=== PATIENT | male | born 1935 | race African-American/Black ===

== ENCOUNTER 2022-07-31 01:46 | Emergency (ER) | payer MEDICAID, MEDICARE, OTHER ==
[~2022-07-31] VITALS: Ht 182.9 cm; Wt 73.0 kg
[2022-07-31 01:55] VITALS: BP 151/60
[2022-07-31] MEDS ORDERED: ACETAMINOPHEN 650MG/20.3ML UDC PO ONE (07:30)
== END 2022-07-31 08:30 | disposition home or self-care (01) ==
LOC: ER 01:48
DX: S39.012A Strain of muscle, fascia and tendon of lower back, initial encounter (principal); I10 Essential (primary) hypertension; Z86.73 Personal history of transient ischemic attack (TIA), and cerebral infarction without residual deficits; W01.0XXA Fall on same level from slipping, tripping and stumbling without subsequent striking against object, initial encounter; Y93.89 Activity, other specified; Y92.018 Other place in single-family (private) house as the place of occurrence of the external cause
CPT/HCPCS: 72131; 72192; 73700; 99284

== ENCOUNTER 2024-08-30 13:34 | Emergency (ER) | payer MEDICARE, OTHER ==
[~2024-08-30] VITALS: Ht 172.7 cm; Wt 78.0 kg
[2024-08-30 13:37] VITALS: O2SAT 99
[2024-08-30 14:16] LABS: BASOPHILS % 0.7 % (0.0-2.0); EOSINOPHILS % 3.2 % (0.0-5.0); HEMATOCRIT. 36.4 % (42.0-52.0); HEMOGLOBIN. 12.1 g/dL (14.0-18.0); LYMPHOCYTES % 7.1 % (20.0-50.0); MEAN CORPUSCULAR HEMOGLOBIN 31.4 pg (28.0-32.0); MEAN CORPUSCULAR HGB CONC 33.3 g/dL (31.0-37.0); MEAN CORPUSCULAR VOLUME 94.3 fL (80.0-94.0); MEAN PLATELET VOLUME 7.2 fl (7.4-10.4); MONOCYTES % 6.9 % (2.0-8.0); NEUTROPHILS % 82.1 % (40.0-76.0); PLATELET 358 x1000/uL (130-400); RED BLOOD CELL COUNT 3.86 mill/uL (4.7-6.1); RED CELL DISTRIBUTION WIDTH 13.5 % (11.6-14.6); WHITE BLOOD COUNT 8.4 x1000/uL (4.5-11.0)
[2024-08-30] MEDS: FAMOTIDINE 20MG/2ML VIAL IV STA (14:17)
[2024-08-30 14:22] LABS: CARBON DIOXIDE 27 mEq/L (21-32); CHLORIDE 101 mEq/L (98-107); POTASSIUM 4.2 mEq/L (3.5-5.1); SODIUM 137 mEq/L (136-145)
[2024-08-30 14:23] LABS: CALCIUM 9.8 mg/dL (8.7-10.4)
[2024-08-30 14:28] LABS: CREATININE 1.3 mg/dL (0.6-1.3); GLUCOSE 114 mg/dL (70-105); UREA NITROGEN BLOOD 29 mg/dL (9-23)
[2024-08-30 14:29] LABS: ALANINE AMINOTRANSFERASE < 7 IU/L (10-49); ALBUMIN 4.1 g/dL (3.2-4.8); ASPARTATE AMINOTRANSFERASE 13 IU/L (<34)
[2024-08-30 14:30] LABS: BILIRUBIN TOTAL 0.4 mg/dL (0.1-1.0); PROTEIN TOTAL 7.4 g/dL (6.0-8.3); TROPONIN I HIGH SENSITIVITY 7 ng/L (3.0-53)
[2024-08-30 14:36] LABS: BILIRUBIN DIRECT < 0.1 mg/dL (<=3.0)
[2024-08-30 17:03] LABS: CLARITY URINE CLEAR (CLEAR); COLOR URINE YELLOW (YELLOW); GLUCOSE URINE NEGATIVE (NEGATIVE); KETONES URINE NEGATIVE (NEGATIVE); LEUKOCYTE ESTERASE URINE NEGATIVE (NEGATIVE); NITRITE URINE NEGATIVE (NEGATIVE); OCCULT BLOOD URINE NEGATIVE (NEGATIVE); PH URINE 5.5 (4.5-8.0); PROTEIN URINE TRACE (NEGATIVE); SPECIFIC GRAVITY URINE 1.017 (1.005-1.030); UROBILINOGEN URINE 0.2 E.U./dL (0.2-1.0)
[2024-08-30] MEDS ORDERED: POLY17PO3 MT (17:24)
[2024-08-30] MEDS ORDERED: SENN-215 MT (17:24)
[2024-08-30 17:27] VITALS: BP 130/66; PULSE 81; RESP 18; TEMP 36.8; O2SAT 99
[2024-08-30 17:37] LABS: BACTERIA URINE TRACE; RBC URINE NONE SEEN /hpf (0-2); SQUAMOUS EPITHELIAL CELL URINE RARE /lpf (RARE/1+)
[2024-08-30 17:38] LABS: WBC URINE NONE SEEN /hpf (0-2)
== END 2024-08-30 19:07 | disposition home or self-care (01) ==
LOC: ER 13:54
DX: K56.41 Fecal impaction (principal); I10 Essential (primary) hypertension; F10.90 Alcohol use, unspecified, uncomplicated; Z86.73 Personal history of transient ischemic attack (TIA), and cerebral infarction without residual deficits; Y90.9 Presence of alcohol in blood, level not specified
CPT/HCPCS: 99285; 74174; 96374; 71275; 80076; 80048; 81003; 83880; 83690; 83735; 85025; 85610; 86850; 86900; 86901; 84484; 36415; 93005; J3490

== ENCOUNTER 2024-09-19 15:55 | Inpatient (IN) | payer MEDICARE ==
[~2024-09-19] VITALS: Ht 167.6 cm; Wt 73.5 kg
[~2024-09-19 15:55] MED LIST: AMLO10TA80 PO; ASPI-1497 MT; ATOR20TA MT; BENA40TA91 PO; FINA5TAB11 PO; HYDR12.54 PO; NITR0.4T49 SL; POLY17PO3 MT; SENN-215 MT; TIZA-191 PO
[2024-09-19] MEDS: HYDROCODONE/ACETAMINOPHEN 5/325MG TABLET PO ONE (17:39)
[2024-09-19] MEDS: SODIUM CHLORIDE 0.9% 1,000 ML IV ONE (17:39)
[2024-09-19 17:40] LABS: BASOPHILS % 0.3 % (0.0-2.0); EOSINOPHILS % 1.7 % (0.0-5.0); HEMATOCRIT. 38.9 % (42.0-52.0); HEMOGLOBIN. 13.1 g/dL (14.0-18.0); LYMPHOCYTES % 7.2 % (20.0-50.0); MEAN CORPUSCULAR HEMOGLOBIN 31.3 pg (28.0-32.0); MEAN CORPUSCULAR HGB CONC 33.6 g/dL (31.0-37.0); MEAN CORPUSCULAR VOLUME 93.1 fL (80.0-94.0); MEAN PLATELET VOLUME 8.6 fl (7.4-10.4); MONOCYTES % 4.3 % (2.0-8.0); NEUTROPHILS % 86.5 % (40.0-76.0); PLATELET 336 x1000/uL (130-400); RED BLOOD CELL COUNT 4.18 mill/uL (4.7-6.1); RED CELL DISTRIBUTION WIDTH 14.1 % (11.6-14.6); WHITE BLOOD COUNT 10.4 x1000/uL (4.5-11.0)
[2024-09-19 17:43] LABS: CHLORIDE 98 mEq/L (98-107); POTASSIUM 4.4 mEq/L (3.5-5.1); SODIUM 134 mEq/L (136-145)
[2024-09-19 17:44] LABS: CARBON DIOXIDE 30 mEq/L (21-32)
[2024-09-19 17:45] LABS: CALCIUM 10.6 mg/dL (8.7-10.4)
[2024-09-19 17:49] LABS: GLUCOSE 98 mg/dL (70-105)
[2024-09-19 17:50] LABS: TROPONIN I HIGH SENSITIVITY 9 ng/L (3.0-53); UREA NITROGEN BLOOD 28 mg/dL (9-23)
[2024-09-19 17:53] LABS: PROTHROMBIN TIME 10.8 sec (9.6-11.0)
[2024-09-19 17:57] LABS: CREATININE 1.5 mg/dL (0.6-1.3)
[2024-09-19 19:17] LABS: CLARITY URINE CLEAR (CLEAR); COLOR URINE YELLOW (YELLOW); GLUCOSE URINE NEGATIVE (NEGATIVE); KETONES URINE NEGATIVE (NEGATIVE); LEUKOCYTE ESTERASE URINE NEGATIVE (NEGATIVE); NITRITE URINE NEGATIVE (NEGATIVE); OCCULT BLOOD URINE NEGATIVE (NEGATIVE); PH URINE 6.5 (4.5-8.0); PROTEIN URINE TRACE (NEGATIVE); SPECIFIC GRAVITY URINE 1.013 (1.005-1.030); UROBILINOGEN URINE 0.2 E.U./dL (0.2-1.0)
[2024-09-19 20:02] LABS: BACTERIA URINE NONE SEEN; RBC URINE NONE SEEN /hpf (0-2); SQUAMOUS EPITHELIAL CELL URINE RARE /lpf (RARE/1+); WBC URINE NONE SEEN /hpf (0-2)
[2024-09-19 21:49] LABS: TROPONIN I HIGH SENSITIVITY 9 ng/L (3.0-53)
[2024-09-19 22:00] VITALS: BP 112/67; PULSE 79; RESP 16; TEMP 36.8
[2024-09-19] MEDS ORDERED: IPRATROPIUM/ALBUTEROL 0.5-3(2.5)MG/3ML NEB HHN PRN (22:15)
[2024-09-19] MEDS ORDERED: GUAIFENESIN 200MG/10ML SUGAR FREE UDC PO PRN (22:15)
[2024-09-19] MEDS ORDERED: ACETAMINOPHEN 325MG TABLET PO PRN (22:15)
[2024-09-19] MEDS ORDERED: ONDANSETRON HCL 4MG/2ML INJ IV PRN (22:15)
[2024-09-19] MEDS ORDERED: DOCUSATE SODIUM 100MG CAPSULE PO PRN (22:15)
[2024-09-20] VITALS: BP 105/66; PULSE 83; RESP 16; TEMP 36.5; O2SAT 98
[2024-09-20] MEDS: ACETAMINOPHEN 325MG TABLET PO PRN (01:17)
[2024-09-20 01:26] LABS: CLARITY URINE CLEAR (CLEAR); COLOR URINE YELLOW (YELLOW); GLUCOSE URINE NEGATIVE (NEGATIVE); KETONES URINE NEGATIVE (NEGATIVE); LEUKOCYTE ESTERASE URINE NEGATIVE (NEGATIVE); NITRITE URINE NEGATIVE (NEGATIVE); OCCULT BLOOD URINE NEGATIVE (NEGATIVE); PROTEIN URINE TRACE (NEGATIVE); SPECIFIC GRAVITY URINE 1.014 (1.005-1.030); UROBILINOGEN URINE 0.2 E.U./dL (0.2-1.0)
[2024-09-20 01:43] LABS: *AMPHETAMINES SCREEN URINE NEGATIVE (NEGATIVE); *BARBITURATES SCREEN URINE NEGATIVE (NEGATIVE); *BENZODIAZEPINES SCREEN URINE NEGATIVE (NEGATIVE); *COCAINE SCREEN URINE NEGATIVE (NEGATIVE); CANNABINOID URINE SCREEN NEGATIVE (NEGATIVE); ECSTASY MDMA SCREEN URINE NEGATIVE (NEGATIVE); METHADONE URINE SCREEN NEGATIVE (NEGATIVE); OPIATES URINE SCREEN PRESUMPTIVE POSITIVE (NEGATIVE); PHENCYCLIDINE URINE SCREEN NEGATIVE (NEGATIVE)
[2024-09-20] MEDS: TRAMADOL 50MG TABLET PO NR (03:51)
[2024-09-20 04:00] VITALS: BP 122/68; PULSE 72; RESP 18; TEMP 36.4; O2SAT 98
[2024-09-20 05:20] LABS: BACTERIA URINE NONE SEEN; RBC URINE 0-2 /hpf (0-2); SQUAMOUS EPITHELIAL CELL URINE NONE SEEN /lpf (RARE/1+); WBC URINE 0-2 /hpf (0-2)
[2024-09-20] MEDS: SODIUM CHLORIDE 0.9% 1,000 ML IV SCH (06:51)
[2024-09-20] MEDS: PANTOPRAZOLE 40MG DR TABLET PO SCH (06:51)
[2024-09-20 07:11] LABS: THYROID STIMULATING HORMONE 0.14 uIU/mL (0.55-4.78)
[2024-09-20 07:12] LABS: T4 FREE 1.22 ng/dL (0.89-1.76)
[2024-09-20 08:00] VITALS: BP 112/65; PULSE 66; RESP 18; TEMP 36.2; O2SAT 99
[2024-09-20] MEDS: ASPIRIN 81MG EC TABLET PO SCH (08:49)
[2024-09-20] MEDS: DOCUSATE SODIUM 100MG CAPSULE PO SCH (08:49)
[2024-09-20] MEDS: ATORVASTATIN CALCIUM 20MG TABLET PO SCH (08:49)
[2024-09-20] MEDS: AMLODIPINE 10MG TABLET PO SCH (09:00)
[2024-09-20] MEDS: FINASTERIDE 5MG TABLET PO SCH (09:02)
[2024-09-20] MEDS: LACTULOSE 20G/30ML UDC PO SCH (15:14)
[2024-09-20] MEDS: NA PHOS,M-B/NA PHOS,DI-BA ENEMA 118ML PR NR (15:16)
[2024-09-20 16:00] VITALS: BP 136/68; PULSE 75; RESP 17; TEMP 35.7; O2SAT 97
[2024-09-20 20:00] VITALS: BP 107/57; PULSE 76; RESP 20; TEMP 36.5; O2SAT 100
[2024-09-20] MEDS: TIZANIDINE HCL 2MG TABLET PO SCH (20:51)
[2024-09-21] VITALS: BP 128/62; PULSE 73; RESP 22; TEMP 36.6; O2SAT 99
[2024-09-21 04:00] VITALS: BP 110/53; PULSE 69; RESP 20; TEMP 36.5; O2SAT 99
[2024-09-21 08:00] VITALS: BP 122/53; PULSE 58; RESP 17; TEMP 36.3; O2SAT 99
[2024-09-21 11:03] LABS: BASOPHILS % 0.7 % (0.0-2.0); HEMATOCRIT. 36.2 % (42.0-52.0); HEMOGLOBIN. 11.6 g/dL (14.0-18.0); MEAN CORPUSCULAR HEMOGLOBIN 30.3 pg (28.0-32.0); MEAN CORPUSCULAR HGB CONC 31.9 g/dL (31.0-37.0); MEAN CORPUSCULAR VOLUME 94.9 fL (80.0-94.0); MEAN PLATELET VOLUME 8.5 fl (7.4-10.4); MONOCYTES % 7.1 % (2.0-8.0); NEUTROPHILS % 72.2 % (40.0-76.0); PLATELET 284 x1000/uL (130-400); RED BLOOD CELL COUNT 3.82 mill/uL (4.7-6.1); RED CELL DISTRIBUTION WIDTH 14.1 % (11.6-14.6); WHITE BLOOD COUNT 6.6 x1000/uL (4.5-11.0)
[2024-09-21 11:14] LABS: CHLORIDE 104 mEq/L (98-107); POTASSIUM 3.5 mEq/L (3.5-5.1); SODIUM 138 mEq/L (136-145)
[2024-09-21 11:15] LABS: CALCIUM 9.3 mg/dL (8.7-10.4); CARBON DIOXIDE 27 mEq/L (21-32)
[2024-09-21 11:20] LABS: GLUCOSE 94 mg/dL (70-105); UREA NITROGEN BLOOD 16 mg/dL (9-23)
[2024-09-21 12:00] VITALS: BP 126/60; PULSE 68; RESP 18; TEMP 36.1; O2SAT 99
[2024-09-21 16:00] VITALS: BP 101/58; PULSE 73; RESP 17; TEMP 36.3; O2SAT 99
[2024-09-21 20:00] VITALS: BP 125/62; PULSE 62; RESP 16; TEMP 36.3; O2SAT 99
[2024-09-22] VITALS: BP 132/62; PULSE 83; RESP 18; TEMP 36.7; O2SAT 98
[2024-09-22 04:00] VITALS: BP 139/72; PULSE 70; RESP 18; TEMP 36.7; O2SAT 99
[2024-09-22 08:00] VITALS: BP 142/79; PULSE 71; RESP 19; TEMP 37; O2SAT 96
[2024-09-22 12:00] VITALS: BP 123/62; PULSE 74; RESP 18; TEMP 37; O2SAT 97
[2024-09-22 14:05] VITALS: BP 123/62; PULSE 74; TEMP 98.6; O2SAT 97
== END 2024-09-22 15:17 | disposition home or self-care (01) | DRG 205 ==
LOC: ER 15:55 → EDBEDREQTM 21:25 → EDBEDREQ 21:25 → 5WST 21:45 → 7EST 09-21 22:16
PROVIDERS: ADMIT Internal Medicine; ATTEND Internal Medicine
DX: M94.0 Chondrocostal junction syndrome [Tietze] (principal); N17.0 Acute kidney failure with tubular necrosis; F11.23 Opioid dependence with withdrawal; E87.1 Hypo-osmolality and hyponatremia; I69.351 Hemiplegia and hemiparesis following cerebral infarction affecting right dominant side; I69.354 Hemiplegia and hemiparesis following cerebral infarction affecting left non-dominant side; K29.80 Duodenitis without bleeding; I20.9 Angina pectoris, unspecified; K56.41 Fecal impaction; N20.0 Calculus of kidney; E86.0 Dehydration; E83.52 Hypercalcemia; D63.8 Anemia in other chronic diseases classified elsewhere; N18.9 Chronic kidney disease, unspecified; N40.0 Benign prostatic hyperplasia without lower urinary tract symptoms; N28.1 Cyst of kidney, acquired; E78.5 Hyperlipidemia, unspecified; J44.89 Other specified chronic obstructive pulmonary disease; T40.2X5A Adverse effect of other opioids, initial encounter; I12.9 Hypertensive chronic kidney disease with stage 1 through stage 4 chronic kidney disease, or unspecified chronic kidney disease; Z79.899 Other long term (current) drug therapy; Z79.82 Long term (current) use of aspirin; Y92.89 Other specified places as the place of occurrence of the external cause
CPT/HCPCS: 36415; 74018; 76770; 80048; 80061; 80305; 80320; 81003; 83036; 84439; 84443; 84484; 85025; 85379; 93005; 93970; 99285; J7030; G0480

== ENCOUNTER 2024-11-02 19:00 | Inpatient (IN) | payer MEDICARE, MEDICAID ==
[~2024-11-02] VITALS: Ht 170.2 cm; Wt 72.6 kg
[~2024-11-02 19:00] MED LIST changes: -ASPI-1497 MT; +PROT40 MT; +SUCR1TAB MT
[2024-11-02 20:26] LABS: HEMOGLOBIN. 10.2 g/dL (14.0-18.0); MEAN CORPUSCULAR HEMOGLOBIN 30.1 pg (28.0-32.0); MEAN PLATELET VOLUME 8.1 fl (7.4-10.4); PLATELET 293 x1000/uL (130-400); WHITE BLOOD COUNT 7.5 x1000/uL (4.5-11.0)
[2024-11-02 20:30] LABS: DIFFERENTIAL COMMENT 1
[2024-11-02 20:35] LABS: CHLORIDE 103 mEq/L (98-107); POTASSIUM 3.6 mEq/L (3.5-5.1); SODIUM 138 mEq/L (136-145)
[2024-11-02] MEDS: FAMOTIDINE 20MG/2ML VIAL IV ONE (20:35)
[2024-11-02 20:36] LABS: CALCIUM 8.9 mg/dL (8.7-10.4); CARBON DIOXIDE 32 mEq/L (21-32)
[2024-11-02 20:37] LABS: INR 1.1; PROTHROMBIN TIME 11.4 sec (9.6-11.0)
[2024-11-02 20:41] LABS: CREATININE 0.9 mg/dL (0.6-1.3); GLUCOSE 116 mg/dL (70-105); UREA NITROGEN BLOOD 11 mg/dL (9-23)
[2024-11-02 20:42] LABS: TROPONIN I HIGH SENSITIVITY 30 ng/L (3.0-53)
[2024-11-02 20:43] LABS: ALANINE AMINOTRANSFERASE < 7 IU/L (10-49); ALBUMIN 3.6 g/dL (3.2-4.8); ASPARTATE AMINOTRANSFERASE 14 IU/L (<34); BILIRUBIN DIRECT 0.1 mg/dL (<=3.0); BILIRUBIN TOTAL 0.4 mg/dL (0.1-1.0); PROTEIN TOTAL 6.3 g/dL (6.0-8.3)
[2024-11-02 20:45] LABS: PLATELET ESTIMATE NORMAL
[2024-11-02] MEDS: CEFTRIAXONE 1GM/50ML 50 ML IV ONE (21:27)
[2024-11-02] MEDS: SODIUM CHLORIDE 0.9% 1,000 ML IV ONE (21:27)
[2024-11-02] MEDS: AZITHROMYCIN 500MG/250ML 250 ML IV ONE (22:43)
[2024-11-03] VITALS (7 sets, daily range): BP systolic 109–148; BP diastolic 51–83; PULSE 56–71; RESP 15–20; TEMP 36–36.7; O2SAT 99–100
[2024-11-03] MEDS: ACETAMINOPHEN 325MG TABLET PO PRN (01:37)
[2024-11-03 03:08] LABS: CLARITY URINE CLEAR (CLEAR); COLOR URINE YELLOW (YELLOW); GLUCOSE URINE NEGATIVE (NEGATIVE); KETONES URINE TRACE (NEGATIVE); LEUKOCYTE ESTERASE URINE NEGATIVE (NEGATIVE); NITRITE URINE NEGATIVE (NEGATIVE); OCCULT BLOOD URINE NEGATIVE (NEGATIVE); PROTEIN URINE 2+ (NEGATIVE); SPECIFIC GRAVITY URINE 1.021 (1.005-1.030); UROBILINOGEN URINE 0.2 E.U./dL (0.2-1.0)
[2024-11-03 04:20] LABS: BACTERIA URINE NONE SEEN; RBC URINE 0-2 /hpf (0-2); SQUAMOUS EPITHELIAL CELL URINE NONE SEEN /lpf (RARE/1+); WBC URINE 0-2 /hpf (0-2)
[2024-11-03] MEDS: PANTOPRAZOLE 40MG DR TABLET PO SCH (06:33)
[2024-11-03 06:56] LABS: CALCIUM 8.4 mg/dL (8.7-10.4); CHLORIDE 101 mEq/L (98-107); POTASSIUM 3.4 mEq/L (3.5-5.1); SODIUM 134 mEq/L (136-145)
[2024-11-03 06:57] LABS: CARBON DIOXIDE 26 mEq/L (21-32)
[2024-11-03 06:58] LABS: BASOPHILS % 0.1 % (0.0-2.0); EOSINOPHILS % 4.9 % (0.0-5.0); HEMATOCRIT. 29.7 % (42.0-52.0); HEMOGLOBIN. 9.2 g/dL (14.0-18.0); LYMPHOCYTES % 12.6 % (20.0-50.0); MEAN CORPUSCULAR HEMOGLOBIN 30.5 pg (28.0-32.0); MEAN CORPUSCULAR HGB CONC 30.8 g/dL (31.0-37.0); MEAN CORPUSCULAR VOLUME 98.8 fL (80.0-94.0); MEAN PLATELET VOLUME 8.3 fl (7.4-10.4); MONOCYTES % 11.3 % (2.0-8.0); NEUTROPHILS % 71.1 % (40.0-76.0); PLATELET 210 x1000/uL (130-400); RED BLOOD CELL COUNT 3.01 mill/uL (4.7-6.1); RED CELL DISTRIBUTION WIDTH 15.1 % (11.6-14.6); WHITE BLOOD COUNT 5.2 x1000/uL (4.5-11.0)
[2024-11-03 07:02] LABS: CREATININE 0.8 mg/dL (0.6-1.3); GLUCOSE 93 mg/dL (70-105); UREA NITROGEN BLOOD 7 mg/dL (9-23)
[2024-11-03 08:11] LABS: HEPATITIS B SURFACE ANTIGEN NEGATIVE (Negative)
[2024-11-03] MEDS: SENNOSIDES/DOCUSATE SOD 8.6/50MG TABLET PO SCH (08:32)
[2024-11-03 08:33] LABS: HEPATITIS C AB NON REACTIVE (Neg) (Negative)
[2024-11-03] MEDS: AMLODIPINE 10MG TABLET PO SCH (08:33)
[2024-11-03] MEDS: FINASTERIDE 5MG TABLET PO SCH (08:33)
[2024-11-03] MEDS: POLYETHYLENE GLYCOL 3350 (17GM) 1 DOSE PACK PO SCH (08:34)
[2024-11-03] MEDS: POTASSIUM CHLORIDE 20MEQ/PACKET PO NR (09:19)
[2024-11-03] MEDS ORDERED: ONDANSETRON HCL 4MG/2ML INJ IV PRN (10:15)
[2024-11-03] MEDS: SUCRALFATE 1G TABLET PO SCH (13:14)
[2024-11-03] MEDS: ATORVASTATIN CALCIUM 20MG TABLET PO SCH (20:55)
[2024-11-04] VITALS: BP 115/58; PULSE 62; RESP 18; TEMP 36.4; O2SAT 100
[2024-11-04 04:00] VITALS: BP 129/67; PULSE 68; RESP 18; TEMP 36.4; O2SAT 98
[2024-11-04 07:13] LABS: CALCIUM 8.8 mg/dL (8.7-10.4); CHLORIDE 101 mEq/L (98-107); POTASSIUM 3.8 mEq/L (3.5-5.1); SODIUM 140 mEq/L (136-145)
[2024-11-04 07:14] LABS: CARBON DIOXIDE 30 mEq/L (21-32)
[2024-11-04 07:19] LABS: CREATININE 1.1 mg/dL (0.6-1.3); GLUCOSE 95 mg/dL (70-105); UREA NITROGEN BLOOD 12 mg/dL (9-23)
[2024-11-04 07:29] LABS: BASOPHILS % 0.1 % (0.0-2.0); EOSINOPHILS % 6.2 % (0.0-5.0); HEMATOCRIT. 30.8 % (42.0-52.0); HEMOGLOBIN. 10.2 g/dL (14.0-18.0); LYMPHOCYTES % 11.4 % (20.0-50.0); MEAN CORPUSCULAR HEMOGLOBIN 30.3 pg (28.0-32.0); MEAN CORPUSCULAR HGB CONC 33.2 g/dL (31.0-37.0); MEAN CORPUSCULAR VOLUME 91.3 fL (80.0-94.0); MONOCYTES % 8.8 % (2.0-8.0); NEUTROPHILS % 73.5 % (40.0-76.0); RED BLOOD CELL COUNT 3.37 mill/uL (4.7-6.1); RED CELL DISTRIBUTION WIDTH 14.2 % (11.6-14.6)
[2024-11-04 08:00] VITALS: BP 121/59; PULSE 65; RESP 18; TEMP 36.5; O2SAT 96
[2024-11-04 08:51] LABS: DIFFERENTIAL COMMENT 1
[2024-11-04 09:17] LABS: PLATELET 225 x1000/uL (130-400)
[2024-11-04] MEDS: HYDROCHLOROTHIAZIDE 12.5MG CAPSULE PO SCH (09:24)
[2024-11-04] MEDS: PANTOPRAZOLE SODIUM 40 MG/VIAL IV SCH (09:24)
[2024-11-04 12:00] VITALS: BP 123/58; PULSE 71; RESP 19; TEMP 36.3; O2SAT 100
[2024-11-04] MEDS: ACETAMINOPHEN 325MG TABLET PO PRN (13:18)
[2024-11-04] MEDS: LACTULOSE 20G/30ML UDC PO SCH (15:09)
[2024-11-04 16:00] VITALS: BP 120/59; PULSE 66; RESP 20; TEMP 36.5; O2SAT 100
[2024-11-04 20:00] VITALS: BP 126/64; PULSE 75; RESP 18; TEMP 36.7; O2SAT 98
[2024-11-05] VITALS: BP 127/62; PULSE 71; RESP 18; TEMP 36.7; O2SAT 98
[2024-11-05 04:00] VITALS: BP 127/61; PULSE 71; RESP 19; TEMP 36.4; O2SAT 98
[2024-11-05 08:00] VITALS: BP 126/65; PULSE 66; RESP 20; TEMP 36.2; O2SAT 100
[2024-11-05 12:00] VITALS: BP 126/58; PULSE 69; RESP 20; TEMP 36.1; O2SAT 65
[2024-11-05 16:00] VITALS: BP 135/67; PULSE 66; RESP 20; TEMP 35.8; O2SAT 99
[2024-11-05 17:21] VITALS: BP 126/58; PULSE 69; TEMP 96.9; O2SAT 95
== END 2024-11-05 18:50 | disposition home or self-care (01) | DRG 392 ==
LOC: ER 19:00 → 8EST 21:24 → ENRESERV 21:43
PROVIDERS: ADMIT Internal Medicine; ATTEND Internal Medicine
DX: K29.70 Gastritis, unspecified, without bleeding (principal); E87.1 Hypo-osmolality and hyponatremia; K59.00 Constipation, unspecified; E87.6 Hypokalemia; D64.9 Anemia, unspecified; I10 Essential (primary) hypertension; E78.5 Hyperlipidemia, unspecified; Z86.73 Personal history of transient ischemic attack (TIA), and cerebral infarction without residual deficits; Z87.11 Personal history of peptic ulcer disease
CPT/HCPCS: 36415; 74176; 80048; 80076; 81003; 83605; 83735; 84145; 84484; 85025; 86705; 87340; 97162; 97166; 97535; 99285; J0456; J0696; J1308; J2470; J7030

== ENCOUNTER 2025-04-13 14:52 | Inpatient (IN) | payer MEDICARE, MEDICAID ==
[~2025-04-13] VITALS: Ht 175.3 cm; Wt 69.0 kg
[~2025-04-13 14:52] MED LIST changes: -AMLO10TA80 PO; -BENA40TA91 PO; -HYDR12.54 PO; -TIZA-191 PO
[2025-04-13 14:54] VITALS: O2SAT 98
[2025-04-13 16:01] LABS: BASOPHILS % 0.2 % (0.0-2.0); EOSINOPHILS % 5.4 % (0.0-5.0); HEMATOCRIT. 36.5 % (42.0-52.0); HEMOGLOBIN. 11.4 g/dL (14.0-18.0); LYMPHOCYTES % 10.3 % (20.0-50.0); MEAN PLATELET VOLUME 8.2 fl (7.4-10.4); MONOCYTES % 8.1 % (2.0-8.0); NEUTROPHILS % 76.0 % (40.0-76.0); PLATELET 245 x1000/uL (130-400); RED BLOOD CELL COUNT 4.65 mill/uL (4.7-6.1); RED CELL DISTRIBUTION WIDTH 22.8 % (11.6-14.6)
[2025-04-13 16:07] LABS: ADD RBC MORPHOLOGY YES
[2025-04-13 16:23] LABS: CREATININE 0.9 mg/dL (0.6-1.3); TROPONIN I HIGH SENSITIVITY 18 ng/L (3.0-53); UREA NITROGEN BLOOD 9 mg/dL (9-23)
[2025-04-13 16:25] LABS: ASPARTATE AMINOTRANSFERASE 13 IU/L (<34); BILIRUBIN DIRECT 0.1 mg/dL (<=3.0); BILIRUBIN TOTAL 0.4 mg/dL (0.1-1.0); PROTEIN TOTAL 6.8 g/dL (6.0-8.3)
[2025-04-13 16:52] LABS: PLATELET ESTIMATE NORMAL
[2025-04-13] MEDS: POTASSIUM CHLORIDE 20MEQ TABLET SR PO ONE (18:51)
[2025-04-13] MEDS: HYDROCHLOROTHIAZIDE 25MG TABLET PO ONE (18:51)
[2025-04-13] MEDS: HYDRALAZINE HCL 50MG TABLET PO ONE (21:46)
[2025-04-13] MEDS: CLONIDINE 0.1MG TABLET PO ONE (23:03)
[2025-04-13] MEDS: CLONIDINE 0.1MG TABLET PO NR (23:33)
[2025-04-14] MEDS ORDERED: IPRATROPIUM/ALBUTEROL 0.5-3(2.5)MG/3ML NEB HHN PRN (00:45)
[2025-04-14] MEDS ORDERED: DEXTROSE 50% WATER 50ML SYRINGE IV PRN (00:45)
[2025-04-14] MEDS ORDERED: ACETAMINOPHEN 325MG TABLET PO PRN (00:45)
[2025-04-14 03:51] LABS: CLARITY URINE CLEAR (CLEAR); COLOR URINE YELLOW (YELLOW); GLUCOSE URINE NEGATIVE (NEGATIVE); KETONES URINE NEGATIVE (NEGATIVE); NITRITE URINE NEGATIVE (NEGATIVE); OCCULT BLOOD URINE NEGATIVE (NEGATIVE); PH URINE 7.0 (4.5-8.0); PROTEIN URINE 3+ (NEGATIVE); SPECIFIC GRAVITY URINE 1.017 (1.005-1.030)
[2025-04-14] MEDS: HYDRALAZINE 20MG/ML VIAL IV NR (03:51)
[2025-04-14 03:52] LABS: LEUKOCYTE ESTERASE URINE NEGATIVE (NEGATIVE); UROBILINOGEN URINE 0.2 E.U./dL (0.2-1.0)
[2025-04-14 03:53] LABS: BACTERIA URINE TRACE; RBC URINE NONE SEEN /hpf (0-2); SQUAMOUS EPITHELIAL CELL URINE RARE /lpf (RARE/1+); WBC URINE 0-2 /hpf (0-2)
[2025-04-14 04:05] LABS: *AMPHETAMINES SCREEN URINE NEGATIVE (NEGATIVE)
[2025-04-14 04:06] LABS: *BARBITURATES SCREEN URINE NEGATIVE (NEGATIVE); *BENZODIAZEPINES SCREEN URINE NEGATIVE (NEGATIVE); *COCAINE SCREEN URINE NEGATIVE (NEGATIVE); METHADONE URINE SCREEN NEGATIVE (NEGATIVE); OPIATES URINE SCREEN NEGATIVE (NEGATIVE); PHENCYCLIDINE URINE SCREEN NEGATIVE (NEGATIVE)
[2025-04-14 04:07] LABS: CANNABINOID URINE SCREEN NEGATIVE (NEGATIVE); ECSTASY MDMA SCREEN URINE NEGATIVE (NEGATIVE)
[2025-04-14 07:55] LABS: BASOPHILS % 0.5 % (0.0-2.0); EOSINOPHILS % 3.3 % (0.0-5.0); HEMATOCRIT. 38.1 % (42.0-52.0); HEMOGLOBIN. 11.4 g/dL (14.0-18.0); LYMPHOCYTES % 9.1 % (20.0-50.0); MEAN PLATELET VOLUME 8.0 fl (7.4-10.4); MONOCYTES % 8.6 % (2.0-8.0); NEUTROPHILS % 78.5 % (40.0-76.0); PLATELET 238 x1000/uL (130-400); RED BLOOD CELL COUNT 4.76 mill/uL (4.7-6.1); RED CELL DISTRIBUTION WIDTH 23.0 % (11.6-14.6)
[2025-04-14 08:00] VITALS: BP 162/84; PULSE 83; RESP 20; TEMP 36.696
[2025-04-14 08:16] LABS: CREATININE 0.8 mg/dL (0.6-1.3); UREA NITROGEN BLOOD 11 mg/dL (9-23)
[2025-04-14] MEDS: BLOOD SUGAR DIAGNOSTIC STRIP TEST SCH (09:00)
[2025-04-14 09:01] LABS: FOLIC ACID (FOLATE) SERUM > 20.00 ng/mL (>5.38)
[2025-04-14 09:02] LABS: VITAMIN B12 SERUM 620 pg/mL (211-911)
[2025-04-14] MEDS: AMLODIPINE 5MG TABLET PO SCH (10:31)
[2025-04-14] MEDS: PANTOPRAZOLE SODIUM 40 MG/VIAL IV SCH (10:31)
[2025-04-14] MEDS: LISINOPRIL 2.5MG TABLET PO SCH (10:34)
[2025-04-14 12:00] VITALS: BP 183/80; PULSE 77; RESP 20; TEMP 36.7; O2SAT 98
[2025-04-14] MEDS: CLONIDINE 0.1MG TABLET PO PRN (12:16)
[2025-04-14] MEDS: ASPIRIN 81MG TABLET PO SCH (12:45)
[2025-04-14 13:00] VITALS: BP 162/84
[2025-04-14] MEDS: FERROUS SULFATE 300MG/5ML UDC PO SCH (13:10)
[2025-04-14 14:22] LABS: ADD RBC MORPHOLOGY YES
[2025-04-14 16:00] VITALS: BP 138/89; PULSE 88; RESP 22; TEMP 36.8; O2SAT 97
[2025-04-14 20:00] VITALS: BP 155/73; PULSE 75; RESP 20; TEMP 36.8; O2SAT 99
[2025-04-14] MEDS: ATORVASTATIN CALCIUM 40MG TABLET PO SCH (21:41)
[2025-04-15] VITALS: BP 150/81; PULSE 76; RESP 20; TEMP 36.3; O2SAT 100
[2025-04-15 04:00] VITALS: BP 163/66; PULSE 75; RESP 20; TEMP 36.4; O2SAT 98
[2025-04-15] MEDS: HYDRALAZINE 20MG/ML VIAL IV PRN (04:38)
[2025-04-15 07:50] LABS: CREATININE 0.8 mg/dL (0.6-1.3); TRIGLYCERIDE 50 mg/dL (0-150); UREA NITROGEN BLOOD 12 mg/dL (9-23)
[2025-04-15 07:51] LABS: LDL CHOLESTEROL 80 mg/dL (5-100)
[2025-04-15 07:54] LABS: BASOPHILS % 0.1 % (0.0-2.0); EOSINOPHILS % 3.2 % (0.0-5.0); HEMATOCRIT. 35.3 % (42.0-52.0); HEMOGLOBIN. 11.2 g/dL (14.0-18.0); LYMPHOCYTES % 10.7 % (20.0-50.0); MEAN PLATELET VOLUME 8.7 fl (7.4-10.4); MONOCYTES % 7.4 % (2.0-8.0); NEUTROPHILS % 78.6 % (40.0-76.0); PLATELET 274 x1000/uL (130-400); RED BLOOD CELL COUNT 4.51 mill/uL (4.7-6.1); RED CELL DISTRIBUTION WIDTH 22.7 % (11.6-14.6)
[2025-04-15 07:55] LABS: T4 FREE 1.26 ng/dL (0.89-1.76)
[2025-04-15 08:00] VITALS: BP 167/72; PULSE 95; RESP 18; TEMP 36.6; O2SAT 94
[2025-04-15] MEDS: AMLODIPINE 10MG TABLET PO SCH (08:59)
[2025-04-15 12:00] VITALS: BP 178/89; PULSE 86; RESP 18; TEMP 36.4; O2SAT 99
[2025-04-15] MEDS: CLONIDINE 0.1MG TABLET PO SCH (15:05)
[2025-04-15 16:00] VITALS: BP 153/67; PULSE 86; RESP 16; TEMP 36.5; O2SAT 94
[2025-04-15 20:00] VITALS: BP 154/77; PULSE 96; RESP 18; TEMP 36.5; O2SAT 98
[2025-04-16] VITALS: BP 158/71; PULSE 69; RESP 18; TEMP 37.1; O2SAT 98
[2025-04-16 04:00] VITALS: BP 145/71; PULSE 72; RESP 18; TEMP 36.5; O2SAT 100
[2025-04-16 08:00] VITALS: BP 137/89; PULSE 74; RESP 18; TEMP 36.7; O2SAT 98
[2025-04-16 12:00] VITALS: BP 129/89; PULSE 99; RESP 20; TEMP 36.9; O2SAT 100
[2025-04-16 16:00] VITALS: BP 118/68; PULSE 89; RESP 20; TEMP 36.8; O2SAT 100
[2025-04-16 20:00] VITALS: BP 139/70; PULSE 82; RESP 20; TEMP 36.5; O2SAT 99
[2025-04-17] VITALS: BP 142/82; PULSE 88; RESP 19; TEMP 36.5; O2SAT 98
[2025-04-17 04:00] VITALS: BP 159/78; PULSE 82; RESP 20; TEMP 36.4; O2SAT 98
[2025-04-17 08:00] VITALS: BP 143/89; PULSE 86; RESP 18; TEMP 35.9; O2SAT 99
[2025-04-17 12:00] VITALS: BP 165/82; PULSE 74; RESP 20; TEMP 36.8; O2SAT 96
[2025-04-17 16:00] VITALS: BP 151/77; PULSE 79; RESP 20; TEMP 36.2; O2SAT 100
[2025-04-17 20:00] VITALS: BP 142/81; PULSE 78; RESP 18; TEMP 36.6; O2SAT 100
[2025-04-17] MEDS: ACETAMINOPHEN 325MG TABLET PO PRN (22:37)
[2025-04-18] VITALS (9 sets, daily range): BP systolic 147–169; BP diastolic 67–85; PULSE 70–78; RESP 16–18; TEMP 35.9–37.1; O2SAT 97–100
[2025-04-19] VITALS: BP 136/93; PULSE 82; RESP 18; TEMP 36.9; O2SAT 96
[2025-04-19 04:00] VITALS: BP 100/89; PULSE 86; RESP 16; TEMP 35.6; O2SAT 96
[2025-04-19] MEDS ORDERED: HYDRALAZINE 10 MG in SODIUM CHLORIDE 0.9% 49.5 ML IV PRN (06:30)
[2025-04-19 08:00] VITALS: BP 158/89; PULSE 82; RESP 18; TEMP 36.2; O2SAT 97
[2025-04-19 12:00] VITALS: BP 153/78; PULSE 83; RESP 20; TEMP 36.4; O2SAT 99
[2025-04-19 16:00] VITALS: BP 148/82; PULSE 79; RESP 18; TEMP 36.7; O2SAT 97
[2025-04-19 20:00] VITALS: BP 148/67; PULSE 77; RESP 16; TEMP 36.6; O2SAT 98
[2025-04-20] VITALS (7 sets, daily range): BP systolic 120–154; BP diastolic 60–84; PULSE 70–83; RESP 18–20; TEMP 35.7–36.8; O2SAT 97–99
== END 2025-04-20 20:10 | DRG 305 ==
LOC: ER 14:52 → 7WST 23:15 → EDBEDREQTM 04-14 01:04 → EDBEDREQ 04-14 01:04 → ENRESERV 04-14 04:07 → 7WST 04-14 04:29 → 4WST 04-19 06:27
PROVIDERS: ADMIT Hospitalist; ATTEND Hospitalist
DX: I16.0 Hypertensive urgency (principal); G93.49 Other encephalopathy; I50.32 Chronic diastolic (congestive) heart failure; D50.9 Iron deficiency anemia, unspecified; F03.90 Unspecified dementia, unspecified severity, without behavioral disturbance, psychotic disturbance, mood disturbance, and anxiety; J44.9 Chronic obstructive pulmonary disease, unspecified; I11.0 Hypertensive heart disease with heart failure; E78.5 Hyperlipidemia, unspecified; E87.6 Hypokalemia; Z74.01 Bed confinement status; Z79.899 Other long term (current) drug therapy; Z86.73 Personal history of transient ischemic attack (TIA), and cerebral infarction without residual deficits; Z87.11 Personal history of peptic ulcer disease; Z91.148 Patient's other noncompliance with medication regimen for other reason
CPT/HCPCS: 36415; 71045; 80048; 80061; 80076; 80305; 81003; 82607; 82728; 82746; 82962; 83036; 83540; 83550; 83880; 84439; 84443; 84484; 85025; 93005; 97166; 99285; A4606; J0360; J2470